=== PATIENT | male | born 1990 | race Caucasian/White ===

== ENCOUNTER 2017-11-06 11:38 | Emergency (ER) | payer MEDICAID ==
[~2017-11-06] VITALS: Ht 182.9 cm; Wt 86.0 kg
[2017-11-06 11:41] VITALS: BP 142/78
[2017-11-06] MEDS ORDERED: ALBU18HF2 INH (12:09)
== END 2017-11-06 12:31 | disposition home or self-care (01) ==
LOC: ER 11:38
DX: J30.2 Other seasonal allergic rhinitis (principal); Z79.899 Other long term (current) drug therapy
CPT/HCPCS: 99283